=== PATIENT | male | born 1990 | race Two or more races ===

== ENCOUNTER 2018-10-01 13:32 | Emergency (ER) | payer OTHER ==
[~2018-10-01] VITALS: Ht 180.3 cm; Wt 110.8 kg
[2018-10-01 13:36] VITALS: BP 127/79
== END 2018-10-01 15:34 | disposition home or self-care (01) ==
LOC: ED 15:30
DX: K29.00 Acute gastritis without bleeding (principal); R11.2 Nausea with vomiting, unspecified
CPT/HCPCS: 99283